=== PATIENT | female | born 1945 | race Caucasian/White ===

== ENCOUNTER → 2025-05-09 10:46 | Outpatient (CLI) | payer MEDICARE, OTHER, SELFPAY ==
--- NOTE | 2025-05-09 10:47 | DI.MRI.S_ITS ---
PROCEDURE: MR LUMBAR SPINE WO CON INDICATIONS: low back / right buttock pain TECHNIQUE: Noncontrast sagittal T1 spin echo and T2 fast echo, sagittal STIR, and T2 fast spin echo through the lumbar spine. In cases with scoliosis, additional coronal T2 fast spin echo may be performed. COMPARISON: Outside Facility, CR, XR LUMBAR SPINE 2-3V, 12/30/2024, 12:19. FINDINGS: Image quality: Excellent Mild dextroscoliosis of the lumbar spine, centered at L3. Grade 1 anterolisthesis L3 on L4, L4 on L5, and L5 on S1. Moderate superior and inferior endplate fracture of L1 with diffuse marrow edema, acute. Moderate superior endplate fracture of L2 with diffuse marrow edema, acute. Moderate inferior endplate fracture of L2 without marrow edema, chronic. No suspicious marrow replacing lesion. Multilevel mild fibrovascular end plate change. Multilevel disc bulge and disc desiccation. Conus terminates at the level of T12-L1, and is unremarkable. Right neural foraminal stenosis: Mild at T11-T12, T12-L1, moderate at L1-L2, mild at L3-4, moderate to severe at L4-5, mild at L5-S1. Left neural foraminal stenosis: Moderate at L1-2, mild at L2-3, moderate at L3- 4, L4-5, severe at L5-S1. Axial findings: T11-T12: Mild disc bulge. Mild bilateral facet arthropathy. No central canal stenosis. T12-L1: Mild bilateral facet arthropathy. Disc bulge. Mild central canal stenosis. L1-2: Moderate bilateral facet arthropathy. Disc bulge. Moderate to severe central canal stenosis. L2-3: Moderate bilateral facet arthropathy. Disc bulge. Mild central canal stenosis. L3-4 Posterior disc uncovering. Severe bilateral facet arthropathy. Mild central canal stenosis. L4-5: Posterior disc uncovering. Severe bilateral facet arthropathy with fluid within bilateral facet. There is a anterior projecting left facet cyst, measuring 6 mm (06:13).. Moderate central canal stenosis. L5-S1: Severe bilateral facet arthropathy with fluid within bilateral facet. Disc bulge. No central canal stenosis. Visualized sacrum is intact. IMPRESSION: 1. Moderate superior and inferior endplate fracture of L1 and moderate superior endplate fracture of L2, acute. 2. Moderate inferior endplate fracture of L2, chronic. 3. Multilevel degenerative changes, most pronounced at L1-2, where there is moderate to severe central canal stenosis. 4. Up to severe neural foraminal stenosis as described above. Dictated by: Marilu Enrique M.D. on 05/09/2025 at 12:06 Approved by: Marilu Enrique M.D. on 05/09/2025 at 12:22
== END ==
LOC: MRI 10:47
PROVIDERS: PCP Orthopaedic Surgery; Referring Provider Physical Medicine & Rehabilitation; Visit Provider Physical Medicine & Rehabilitation
DX: M47.26 Other spondylosis with radiculopathy, lumbar region (principal); M47.27 Other spondylosis with radiculopathy, lumbosacral region; M48.56XA Collapsed vertebra, not elsewhere classified, lumbar region, initial encounter for fracture; M48.07 Spinal stenosis, lumbosacral region; M48.061 Spinal stenosis, lumbar region without neurogenic claudication; M48.05 Spinal stenosis, thoracolumbar region; M48.04 Spinal stenosis, thoracic region
CPT/HCPCS: 72148